=== PATIENT | female | born 1995 ===

== ENCOUNTER → 2018-02-07 17:23 | Emergency (ER) | payer OTHER ==
--- NOTE | 2018-02-07 18:13 | ED ---
Psychiatric Complaint - HPI Summary HPI Summary: This is scribe Cullen Mrat documenting for attending Dr. Zen Perez This patient is a 22 year old F presenting to [facility] with a chief complaint of depression since 1500. Pt denies any trigger for this episode of depression, and endorses PMHx depression, for which she takes Wellbutrin and Trintellix. She denies missed does, SI, SIB, HI. She states that she felt really off, didn t think (she) could make it through work. PMHx SIB, no SI. Pt denies EtOH or substance use. I, Dr. Zaldivar personally performed the services described in this documentation as scribed in my presence and it is both accurate and complete. - History Of Current Complaint Chief Complaint: EDMentalHealth Time Seen by Provider: 02/07/18 17:37 Hx Obtained From: Patient Onset/Duration: Sudden Onset, Lasting Hours Timing: Constant Severity Initially: Mild Severity Currently: Mild Character: Depressed Aggravating Factor(s): Nothing Alleviating Factor(s): Nothing Associated Signs And Symptoms: Positive: Negative Related History: Positive For: Prior Psychiatric Issues Has Suicidal: Denies: Thoughts Has Homicidal: Denies: Thoughts Recent Stressor(s): Denies - Allergies/Home Medications Allergies/Adverse Reactions: Allergies Allergy/AdvReac Type Severity Reaction Status Date / Time No Known Allergies Allergy Verified 02/07/18 17:29 Home Medications: Home Medications Diazepam TAB(*) [Valium TAB(*)] 2.5 mg PO DAILY PRN 02/07/18 [History Confirmed 02/07/18] Levothyroxine TAB* [Synthroid TAB*] 50 mcg PO DAILY 02/07/18 [History Confirmed 02/07/18] Norgestimate-Ethinyl Estradiol [Ilc-Qq-Aykflo 0.18/0.215/0.25 mg-25 Mcg] 1 tab PO DAILY 02/07/18 [History Confirmed 02/07/18] Sertraline* [Zoloft*] 25 mg PO DAILY 02/07/18 [History Confirmed 02/07/18] Vortioxetine (NF) [Trintellix (NF)] 5 mg PO DAILY 02/07/18 [History Confirmed ] buPROPion SR TAB* [Wellbutrin SR TAB*] 100 mg PO BID 02/07/18 [History Confirmed 02/07/18] PMH/Surg Hx/FS Hx/Imm Hx Endocrine/Hematology History: Reports: Hx Thyroid Disease - hypo Denies: Hx Sickle Cell Disease Cardiovascular History: Denies: Hx Myocardial Infarction Respiratory History: Reports: Hx Asthma - "mild" Denies: Hx Lung Cancer History: Denies: Hx Chronic Renal Failure, Hx Dialysis Musculoskeletal History: Denies: Hx Osteoporosis Sensory History: Reports: Hx Contacts or Glasses Denies: Hx Legally Blind, Hx Deafness, Hx Hearing Aid Opthamlomology History: Reports: Hx Contacts or Glasses Denies: Hx Legally Blind EENT History: Denies: Hx Deafness, Hx Hearing Aid Neurological History: Denies: Hx CVA Psychiatric History: Reports: Hx Depression Infectious Disease History: No Infectious Disease History: Denies: Traveled Outside the [place] in Last 30 Days - Family History Known Family History: Positive: Hypertension - Social History Occupation: Employed Full-time Alcohol Use: None Hx Substance Use: No Hx Tobacco Use: No Review of Systems Negative: Fever Positive: no symptoms reported Positive: Depressed. Negative: Other - SI, SIB, HI All Other Systems Reviewed And Are Negative: Yes Physical Exam - Summary Physical Exam Summary: VITAL SIGNS: Reviewed. GENERAL: Patient is a well-developed and nourished female who is lying comfortable in the stretcher. Patient is not in any acute respiratory distress. HEAD AND FACE: No signs of trauma. No ecchymosis, hematomas or skull depressions. No sinus tenderness. EYES: PERRLA, EOMI x 2, No injected conjunctiva, no nystagmus. EARS: Hearing grossly intact. Ear canals and tympanic membranes are within normal limits. MOUTH: Oropharynx within normal limits. NECK: Supple, trachea is midline, no adenopathy, no JVD, no carotid bruit, no c- spine tenderness, neck with full ROM. CHEST: Symmetric, no tenderness at palpation LUNGS: Clear to auscultation bilaterally. No wheezing or crackles. CVS: Regular rate and rhythm, S1 and S2 present, no murmurs or gallops appreciated. ABDOMEN: Soft, non-tender. No signs of distention. No rebound no guarding, and no masses palpated. Bowel sounds are normal. EXTREMITIES: FROM in all major joints, no edema, no cyanosis or clubbing. NEURO: Alert and oriented x 3. No acute neurological deficits. Speech is normal and follows commands. SKIN: Dry and warm Triage Information Reviewed: Yes Vital Signs On Initial Exam: Initial Vitals Temp Pulse Resp BP Pulse Ox 98.0 F 74 15 112/64 100 02/07/18 17:26 02/07/18 17:26 02/07/18 17:26 02/07/18 17:26 02/07/18 17:26 Vital Signs Reviewed: Yes Diagnostics - Vital Signs Vital Signs Temp Pulse Resp BP Pulse Ox 02/07/18 17:26 98.0 F 74 15 112/64 100 - Laboratory Result Diagrams: 02/07/18 18:13 02/07/18 18:13 Lab Statement: Any lab studies that have been ordered have been reviewed, and results considered in the medical decision making process. Course/Dx - Course Assessment/Plan: Blood tests without any significant abnormality. Patient is medically clear. Patient is awaiting for mental health evaluation. Patient will be signed out to Dr. Kwong at shift change. - Differential Dx/Clinical Impression Differential Diagnosis/HQI/PQRI: Positive: Depression Provider Diagnosis: Depression Discharge - Sign-Out/Discharge Documenting (check all that apply): Sign-Out Patient Signing out patient TO: Fabien Lao - [facility] - Discharge Plan Referrals: No Primary Care Phys,NOPCP [Primary Care Provider] -
[2018-02-07 18:24] LABS: Urine Appearance Cloudy; Urine Blood Negative (Negative); Urine Color Yellow; Urine Ketones Negative (Negative); Urine Protein Negative (Negative); Urine Red Blood Cell Trace(0-2/hpf) (Absent); Urine Specific Gravity 1.012 (1.010-1.030); Urine Urobilinogen Negative (Negative); Urine White Blood Cell Trace(0-5/hpf) (Absent)
[2018-02-07 18:28] LABS: ABS Basophils 0 10^3/ul (0-0.2); ABS Eosinophils 0.1 10^3/ul (0-0.6); ABS Lymphocytes 1.8 10^3/ul (1.0-4.8); ABS Monocytes 0.5 10^3/ul (0-0.8); ABS Neutrophils 2.6 10^3/ul (1.5-7.7); ABS Nucleated RBC 0 10^3/ul; Eosinophil % 2.1 % (0-6); Hematocrit 39 % (35-47); Hemoglobin 13.4 g/dl (12.0-16.0); Lymphocyte % 34.9 % (25-47); Mean Corpuscular HGB Conc 35 g/dl (31-36); Mean Corpuscular Hemoglobin 31 pg (27-31); Mean Corpuscular Volume 91 fL (80-97); Mean Platelet Volume 8.4 um3 (7.4-10.4); Nucleated Red Blood Cells % 0.1; Platelet Count 296 10^3/ul (150-450); Red Cell Distribution Width 13 % (10.5-15)
[2018-02-07 18:51] LABS: EGFR Non-African American 102.8 (>60)
[2018-02-07 19:15] VITALS: BP 112/60
--- NOTE | 2018-02-07 19:59 | PN ---
Progress Note - Progress Note Date of Service: 02/07/18 Note: This is scribe, Chinmay Rudd, documenting for attending Dr. Shilo MD. I, Dr. Lao, personally performed the services described in this documentation as scribed in my presence and it is both accurate and complete. SIGN OUT FROM DR. GARSIA AT SHIFT CHANGE PENDING [facility]. Pt is a 22 y/o F presenting to ED with c/o depression. 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 DX: DISPO:
== END | disposition home or self-care (01) ==
LOC: ED 17:23
DX: F32.9 Major depressive disorder, single episode, unspecified (principal); E03.9 Hypothyroidism, unspecified
CPT/HCPCS: 36415; 80053; 80307; 80320; 80329; 81003; 81015; 84443; 85025; 87086; 99285; G0480